=== PATIENT | male | born 1980 | race Hispanic/Latino ===

== ENCOUNTER 2025-06-09 17:38 | Emergency (ER) | payer BC ==
[~2025-06-09] VITALS: Ht 175.3 cm; Wt 99.3 kg
[~2025-06-09 17:38] MED LIST: LACT-441 PO; MVIT PO; PANT40TA54 PO; PROP20TA96 PO; SUCR1ORA15 PO
--- NOTE | 2025-06-09 17:49 | ERN ---
ED Note History of Present Illness Stated Complaint: FEVER Chief Complaint: Fever Time Seen by MD: 17:41 Dictation: PATIENT IS A 43-YEAR-OLD MALE COMING IN TODAY STATUS POST A ENDOSCOPY THIS MORNING HE STARTS THIS AFTERNOON WHEN HE GOT HOME HE STARTED HAVING FEVER CHILLS WITH T-MAX OF 104. NO NAUSEA VOMITING NO DIARRHEA NO CHANGE IN URINATION. HE DENIES SORE THROAT RUNNY NOSE OR COUGH. 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 STATES HE DID NOT FILL FLU LIKE SYMPTOMS WHEN HE GOT TO THE ENDOSCOPY THIS MORNING BY Allergies: Coded Allergies: No Known Drug Allergies (Unverified Allergy, Unknown, 03/12/25) Home Meds Active Scripts Pantoprazole Sodium (Pantoprazole Sodium) 40 Mg Tablet.dr, 1 TAB PO BIDAC for 30 Days, #60 TAB 0 Refills Prov:TONI THAO MD 05/29/25 Sucralfate (Sucralfate) 1 Gram/10 Ml Oral.susp, 10 ML PO TID for 14 Days, #500 ML 0 Refills Prov:HEMA KEENE MD 03/26/25 Lactulose (Lactulose) 10 Gram/15 Ml Solution, 30 ML PO BID for constipation, #500 ML 0 Refills Prov:HEMA KEENE MD 03/26/25 Propranolol HCl (Inderal) 20 Mg Tab, 1 TAB PO BID for 30 Days, #60 TAB 0 Refills Prov:ELVIA DAVILA MD 03/16/25 Multivitamins,Therapeutic (Multivitamin Tablet) 400 Mcg Tab, 1 TAB PO DAILY, #30 TAB Prov:ELVIA DAVILA MD 03/16/25 Past Medical History Past Medical History: GI Bleed, Other Additional Past Medical Hx: esphageal varices Surgical History: Other Surgical History Other: colonoscopy RN Note Reviewed/Agreed w/PFSH: Yes Review of System Dictation CONSTITUTIONAL: NEGATIVE EXCEPT FOR HPI FEVER CHILLS HEAD/FACE: NEGATIVE EXCEPT FOR HPI EENT: NEGATIVE EXCEPT FOR HPI RESPIRATORY: NEGATIVE EXCEPT FOR HPI GASTROINTESTINAL/ABDOMINAL: NEGATIVE EXCEPT FOR HPI GENITOURINARY: NEGATIVE EXCEPT FOR HPI MUSCULOSKELETAL: NEGATIVE EXCEPT FOR HPI INTEGUMENTARY: NEGATIVE EXCEPT FOR HPI NEUROLOGICAL/PSYCH: NEGATIVE EXCEPT FOR HPI HEMATOLOGIC/LYMPHATIC: NEGATIVE EXCEPT FOR HPI ALL SYSTEMS NEGATIVE, EXCEPT NOTED ABOVE. 13 POINT REVIEW OF SYSTEMS ASSESSED AND ALL NEGATIVE EXCEPT FOR ABOVE. Initial Vital Sign VS Vital Signs Date Time Temp Pulse Resp B/P (MAP) Pulse Ox O2 Delivery O2 Flow Rate FiO2 06/09/25 17:40 102.6 112 20 109/67 95 Room Air 0 06/09/25 17:43 21 Physical Exam Dictation VITAL SIGNS REVIEWED GENERAL APPEARANCE: ALERT, ORIENTED X 3, MILD ACUTE DISTRESS, WELL DEVELOPED, NOURISHED. HEAD AND FACE: NON-TRAUMATIC. EYES: PERRL, PINK CONJUNCTIVAS, EYELID NO TRAUMA, ANTERIOR CHAMBER WITH ARCUS SENILIS. EARS: PINNAS INTACT AND NO SIGNS OF TRAUMA OR ERYTHEMA EAR CANALS CLEAR AND NO DISCHARGE TM NO ERYTHEMA NOSE: NO DISCHARGE, NO BLEEDING. OROPHARYNX: MOUTH NORMAL, TONGUE PINK, PHARYNX CLEAR,NO ERYTHEMA, TONSILS NO EXUDATES, NO ABSCESSES NOTED, MUCOUS MEMBRANE MOIST NECK: SUPPLE, NON-TENDER, NO THYROMEGALY, NO MASSES, NO JVD, NO BRUITS BREAST:DEFERRED CHEST:NO TENDERNESS, NO CREPITUS, NO PARADOXICAL MOVEMENT, NO RETRACTIONS LUNGS:CLEAR, WELL-VENTILATED, SYMMETRIC, NO RALES, NO WHEEZING, NO RHONCHI, NO STRIDOR, GOOD BREATH SOUNDS BILATERALLY HEART: REGULAR RATE, REGULAR RHYTHM, NO MURMUR, NO GALLOPS VASCULAR: NO PERIPHERAL EDEMA, ABDOMEN: SOFT, POSITIVE BOWEL SOUNDS, NONDISTENDED, NO GUARDING, NONTENDER, NO REBOUND, NO MASSES NO HEPATOMEGALY, NO SPLENOMEGALY, NO PALMER'S SIGN, NO HERNIAS. RECTAL: DEFERRED GENITAL: DEFERRED NEUROLOGICAL: NORMAL SPEECH, MOTOR FUNCTION INTACT, SENSORY FUNCTION INTACT MUSCULOSKELETAL: NECK NONTENDER, FULL RANGE OF MOTION, BACK NONTENDER, FULL RANGE OF MOTION, EXTREMITIES: NONTENDER, FULL RANGE OF MOTION SKIN: COLOR PINK, DRY, NO TURGOR, NO RASH, NO LACERATIONS, NO ABRASIONS, NO CONTUSIONS. LYMPHATIC: DEFERRED Results (Laboratory/Radiology) Laboratory/Radiology Laboratory Tests Test 06/09/25 18:00 06/09/25 18:13 06/09/25 18:20 White Blood Count 6.4 K/uL (4.8-10.8) Red Blood Count 3.72 MIL/uL (4.50-6.20) L Hemoglobin 9.2 g/dL (14.0-18.0) L Hematocrit 30.2 % (42-54) L Mean Corpuscular Volume 81.2 fL (79-99) Mean Corpuscular Hemoglobin 24.7 pg (27.0-33.0) L Mean Corpuscular Hemoglobin Concent 30.5 g/dL (32.0-36.0) L Red Cell Distribution Width 23.6 % (11.0-15.5) H Platelet Count 126 K/uL (130-400) L Mean Platelet Volume 10.8 fL (7.5-10.5) H Immature Granulocyte % (Auto) 0.2 % (0-1) Neutrophils (%) (Auto) 82.3 % (40.0-77.0) H Lymphocytes (%) (Auto) 8.2 % (21.0-51.0) L Monocytes (%) (Auto) 8.6 % (3.0-13.0) Eosinophils (%) (Auto) 0.5 % (0.0-8.0) Basophils (%) (Auto) 0.2 % (0.0-5.0) Neutrophils # (Auto) 5.2 K/uL (1.8-7.7) Lymphocytes # (Auto) 0.5 K/uL (1.0-4.8) L Monocytes # (Auto) 0.6 K/uL (0.1-1.0) Eosinophils # (Auto) 0.03 K/uL (0.00-0.70) Basophils # (Auto) 0.01 K/uL (0.00-0.20) Absolute Immature Granulocyte (auto 0.01 K/uL (0-1) Nucleated Red Blood Cells 0.0 % (0.0-0.19) White Cell Morphology Comment See comments Red Blood Cell Morphology See comments Sodium Level 136 mmol/L (136-145) Potassium Level 3.6 mmol/L (3.5-5.1) Chloride Level 103 mmol/L (101-111) Carbon Dioxide Level 27 mmol/L (21-32) Blood Urea Nitrogen 9 mg/dL (7-18) Creatinine 0.7 mg/dL (0.5-1.3) Glomerular Filtration Rate Calc 115 mL/min (>90) Random Glucose 130 mg/dL (70-105) H Lactic Acid Level 2.4 mmol/L (0.8-2.5) Total Calcium 8.2 mg/dL (8.5-10.1) L Influenza Type A Antigen Negative For Type A Influenza Type B Antigen Negative For Type B SARS-CoV-2 Antigen (Rapid) PRESUMPTIVE NEGATIVE Group A Streptococcus Rapid negative (NEGATIVE) Urine Color YELLOW (YELLOW) Urine Appearance CLEAR (CLEAR) Urine pH 6.0 (5.0-8.0) Urine Specific [place] 1.030 (1.001-1.031) Urine Protein 10 mg/dL (NEGATIVE) H Urine Glucose (UA) NEGATIVE mg/dL (NEGATIVE) Urine Ketones NEGATIVE mg/dL (NEGATIVE) Urine Occult Blood NEGATIVE (NEGATIVE) Urine Nitrate NEGATIVE (NEGATIVE) Urine Bilirubin NEGATIVE mg/dL (NEGATIVE) Urine Urobilinogen 0.2 mg/dL (0.2-1.0) Urine Leukocyte Esterase NEGATIVE [place]/uL Urine RBC 0-1 /HPF (0-1) Urine WBC 2-5 /HPF (0-1) H Urine Squamous Epithelial Cells RARE /HPF (0-2) Urine Bacteria RARE /HPF (None Seen) Urine Hyaline Casts 2-5 /LPF (0-1 /LPF) H 1840/X-RAY [id number]/CHEST X-RAY NEGATIVEACCESSION#: [id number] REPORT#: [id number] SERVICE [id number] REASON: SHORTNESS A BREATH/COUGH ORDERING PHYSICIAN: [facility] COUNSELLOR PROCEDURE: CXR1VW - CHEST 1VW EXAM: CR Chest, 1 View. CLINICAL HISTORY: SHORTNESS A BREATH/COUGH COMPARISON: None provided. FINDINGS: LUNGS: There is no mass, infiltrate, or acute pulmonary abnormality. PLEURAL SPACES: No pleural effusion or pneumothorax. MEDIASTINUM: The cardiomediastinal silhouette is within normal limits. BONES: No acute osseous abnormality. IMPRESSION: No acute cardiopulmonary pathology is evident. /[place] Labs Reviewed?: Yes ED Course ED Course Orders Procedure Category Date Status Time Covid19 (Sars Antigen LAB 06/09/25 Complete Rapid) 17:46 Influenza Type A & B, LAB 06/09/25 Complete Rapid 17:46 Rapid (Group A Strep) LAB 06/09/25 Complete 17:46 Cbc With Differential LAB 06/09/25 Complete 17:46 Blood Cult EVA 06/09/25 Logged 17:46 Urinalysis Profile LAB 06/09/25 Complete 17:46 Lactic Acid LAB 06/09/25 Complete 17:46 Basic Metabolic Panel LAB 06/09/25 Complete 17:46 Chest 1vw RAD 06/09/25 Resulted 17:46 Acetaminophen 500mg PHA 06/09/25 Complete Tab (Tylenol 500mg T 18:00 Current Medications Medications (Trade) Dose Ordered Sig/Neisha Route PRN Reason Start Time Stop Time Status Last Admin Dose Admin Acetaminophen (TYLenol 500MG TAB) 1,000 mg ONCE ONCE PO 06/09/25 18:00 06/09/25 18:01 DC 06/09/25 18:33 Vital Signs Date Time Temp Pulse Resp B/P (MAP) Pulse Ox O2 Delivery O2 Flow Rate FiO2 06/09/25 18:33 102.6 06/09/25 17:43 102.6 112 20 109/67 95 Room Air* 0 21 06/09/25 17:40 102.6 112 20 109/67 95 Room Air 0 1920/PATIENT DISCHARGED HOME WITH VIRAL SYNDROME. NO ANTIBIOTICS INITIATED THIS TIME. NO FLUIDS GIVEN PATIENT WILL BE TREATED FOR ACUTE VIRAL SYNDROME WITH FLUIDS TYLENOL OR MOTRIN [id number] NEEDED HOME. FOLLOW UP WITH HIS DOCTOR. URINALYSIS NEGATIVE Medical Decision Making MDM MDM: DIFFERENTIAL DIAGNOSIS: SEPSIS/SARS COVID/FLU/STREP/PNEUMONIA/BRONCHITIS/ELECTROLYTE IMBALANCE/DEHYDRATION/UTI RATIONALE: TESTS CONSIDERED AND ORDERED SECONDARY TO SHARED DECISION MAKING INCLUDE: RADIOLOGY/LABS PREVIOUS OUTSIDE RECORDS REVIEWED: OLD ER VISITS. RISK OF COMPLICATION AND/OR MORBIDITY OR MORTALITY OF PATIENT MANAGEMENT: NONE MEDICATIONS-PER MEDICATION RECONCILIATION NEED FOR HOSPITALIZATION: PATIENT DOES NOT MEET CRITERIA FOR HOSPITALIZATION. NONE NEED FOR EMERGENCY MAJOR/MINOR SURGERY: NO THERE ARE NO SOCIAL CONCERNS WITH THIS PATIENT. PRESCRIPTION DRUG MANAGEMENT NONE PRESCRIPTIONS WILL INCLUDE SYMPTOMATIC CARE PATIENT'S PRIOR EXTERNAL MEDICAL RECORDS FROM OTHER ER VISITS WERE REVIEWED BY ME INDICATED. PRIOR TESTING AND RESULTS FROM PREVIOUS VISITS WERE REVIEWED. PRIOR TESTS WERE TAKEN INTO ACCOUNT WITH MEDICAL DECISION MAKING AND RESOURCE UTILIZATION, INDEPENDENT HISTORIAN/HISTORIANS WERE USED TO OBTAIN COMPLETE MEDICAL HISTORY. I INDEPENDENTLY INTERPRETED THE TEST THAT WERE PERFORMED, RESULTS WERE REVIEWED BY ME AND CONSIDERED FINDINGS ON RADIOLOGY IF ORDERED. MEDICAL MANAGEMENT AND EXAMINATION INTERPRETATION DISCUSSIONS WERE HAD BY ME WITH OTHER QUALIFIED HEALTHCARE PROFESSIONALS INDICATED FOR THE PATIENT'S CARE. DX & DISP Disposition: Discharge Departure Impression: Primary Impression: Acute viral syndrome Additional Impressions: Chronic anemia, Hypocalcemia, Diabetes mellitus with hyperglycemia Condition: Stable Additional Instructions: FOLLOW-UP WITH PRIMARY CARE PROVIDER IN 1 TO 2 DAYS. TAKE MEDICATIONS DIRECTED HERE IN THE EMERGENCY ROOM. OKAY TO CONTINUE HOME MEDICATIONS UNLESS OTHERWISE DISCUSSED DURING YOUR VISIT IN THE EMERGENCY ROOM TODAY. RETURN TO YOUR NEAREST EMERGENCY ROOM IF SYMPTOMS WORSEN OR IF THERE IS NO IMPROVEMENT. CALL 911 IF YOU NEED IMMEDIATE ASSISTANCE. TAKE TYLENOL OR MOTRIN [id number] NEEDED AND IF NO CONTRAINDICATIONS ARE PRESENT. INCREASE ORAL HYDRATION. A WOUND CULTURE OR URINE CULTURE WAS ORDERED HERE IN THE EMERGENCY ROOM DEPARTMENT PLEASE FOLLOW-UP WITH PRIMARY CARE PROVIDER AND ADVISE THEM TO GET REPEAT PORTS FROM OUR FACILITY. IF YOU HAD ANY FOREIGN WRAP/SPLINTS THAT WERE APPLIED HERE, PLEASE DO NOT REMOVE THEM UNTIL YOU SEE YOUR PRIMARY CARE OR SPECIALTY. INCREASE YOUR FLUID INTAKE. TAKE TYLENOL OR MOTRIN [id number] NEEDED FOR FEVER. FOLLOW UP WITH YOUR PRIMARY CARE DOCTOR IN THE NEXT 1-2 DAYS. Referrals: HARLEY GIRALDO (PCP) Time of Disposition: 19:21 I have reviewed the case, and I agree with, Diagnosis and Plan [facility] NP Jun 09, 2025 17:49
[2025-06-09 18:08] LABS: IMMATURE GRANULOCYTE ABSOLUTE 0.01 K/uL (0-1); NUCLEATED RED BLOOD CELLS 0.0 % (0.0-0.19); PLATELET COUNT (AUTO) 126 K/uL (130-400); RED BLOOD CELL COUNT(AUTO) 3.72 MIL/uL (4.50-6.20); RED CELL DISTRIBUTION WIDTH 23.6 % (11.0-15.5); WHITE BLOOD COUNT (AUTO) 6.4 K/uL (4.8-10.8)
[2025-06-09 18:16] LABS: CREATININE 0.7 mg/dL (0.5-1.3); GLOMERULAR FILTR. RATE CALC 115.0 mL/min (>90); GLUCOSE,RANDOM 130.0 mg/dL (70-105); SODIUM SERUM 136.0 mmol/L (136-145); UREA NITROGEN, BLOOD 9.0 mg/dL (7-18)
[2025-06-09 18:33] VITALS: TEMP 102.6
[2025-06-09 18:34] LABS: RAPID GROUP A STREP negative (NEGATIVE)
[2025-06-09 18:41] LABS: COVID19 (SARS ANTIGEN RAPID) PRESUMPTIVE NEGATIVE (NEGATIVE); INFLUENZA TYPE A Negative For Type A (NEGATIVE); INFLUENZA TYPE B Negative For Type B (NEGATIVE)
[2025-06-09 18:50] LABS: APPEARANCE,URINE CLEAR (CLEAR); GLUCOSE, URINE (UA) NEGATIVE (NEGATIVE); LEUKOCYTE ESTERASE ,URINE NEGATIVE Leu/uL (NEGATIVE); NITRATE,URINE NEGATIVE (NEGATIVE); OCCULT BLOOD,URINE NEGATIVE (NEGATIVE)
[2025-06-09 18:52] LABS: ADD UA MICROSCOPIC YES; SQUAMOUS EPITHELIAL CELL,UR RARE /HPF (0-2)
--- NOTE | 2025-06-09 19:05 | HMCIMG ---
EXAM: CR Chest, 1 View. CLINICAL HISTORY: SHORTNESS A BREATH/COUGH COMPARISON: None provided. FINDINGS: LUNGS: There is no mass, infiltrate, or acute pulmonary abnormality. PLEURAL SPACES: No pleural effusion or pneumothorax. MEDIASTINUM: The cardiomediastinal silhouette is within normal limits. BONES: No acute osseous abnormality. IMPRESSION: No acute cardiopulmonary pathology is evident. /[place]
[2025-06-09 19:39] VITALS: BP 90/48; PULSE 79; RESP 16; TEMP 100.8; O2SAT 96
== END 2025-06-09 19:58 | disposition home or self-care (01) ==
LOC: EDH 17:38
DX: B34.9 Viral infection, unspecified (principal); D64.9 Anemia, unspecified; E11.65 Type 2 diabetes mellitus with hyperglycemia; E83.51 Hypocalcemia; Z79.899 Other long term (current) drug therapy; Z20.822 Contact with and (suspected) exposure to COVID-19
CPT/HCPCS: 36415; 71045; 80048; 81001; 83605; 85025; 87040; 87426; 87804; 87880; 99283

== ENCOUNTER 2025-07-28 09:27 | Emergency (ER) | payer BC ==
[~2025-07-28] VITALS: Ht 175.3 cm; Wt 96.6 kg
[~2025-07-28 09:27] MED LIST changes: +ACET-2079 PO; +AMOX1TAB16 PO; +FURO40TA5 PO; +ONDA-105 PO; +PROP10TA72 PO; -PROP20TA96 PO; +SPIR100T5 PO; -SUCR1ORA15 PO
--- NOTE | 2025-07-28 09:50 | ERN ---
General Chief Complaint: Abdominal Pain Stated Complaint: ABDOMINAL PAIN Time Seen by MD: 09:29 Source: patient History of Present Illness Initial Comments Patient is a 45-year-old male coming in complaining of lower abdominal pain. Per patient he had surgery on July 03 and shortly after that started having lower abdominal pain. No fever no chills mild nauseousness no vomiting. Patient quantifies the pain at 10/10. Surgery was performed [facility] by Dr. Santamaria. Timing/Duration: 1 week, constant, getting worse Severity: severe Modifying Factors: improves with movement Associated Symptoms: fever/chills Allergies: Coded Allergies: No Known Drug Allergies (Unverified Allergy, Unknown, 03/12/25) Home Meds Active Scripts Amoxicillin/Potassium Clav (Amox Tr-K Clv 875-125 mg Tab) 875 Mg-125 Mg Tablet, 1 TAB PO BID for 10 Days, #20 TAB 0 Refills Prov:COLLIN SCANLON MD 07/10/25 Pantoprazole Sodium (Pantoprazole Sodium) 40 Mg Tablet.dr, 1 TAB PO BIDAC for 30 Days, #60 TAB 0 Refills Prov:TONI THAO MD 05/29/25 Lactulose (Lactulose) 10 Gram/15 Ml Solution, 30 ML PO BID for constipation, #500 ML 0 Refills Prov:HEMA KEENE MD 03/26/25 Multivitamins,Therapeutic (Multivitamin Tablet) 400 Mcg Tab, 1 TAB PO DAILY, #30 TAB Prov:ELVIA DAVILA MD 03/16/25 Reported Medications Ondansetron HCl (Ondansetron HCl) 8 Mg Tablet, 1 TAB PO TID PRN for NAUSEA/VOMITING 07/09/25 Acetaminophen with Codeine (Acetaminophen-Cod #3 Tablet) 300 Mg-30 Mg Tablet, 1 TAB PO Q6HPRN PRN for PAIN LEVEL 1 TO 5 07/09/25 Furosemide (Furosemide) 40 Mg Tablet, 1 TAB PO DAILY 07/09/25 Spironolactone (Spironolactone) 100 Mg Tablet, 1 TAB PO DAILY 07/09/25 Propranolol HCl (Inderal) 10 Mg Tab, 1 TAB PO BID 07/09/25 Past Medical History Past Medical History: No Pertinent History, Liver Disease Medical History Other: esphageal varices Past Surgical History: Other (had an anastomosis of gut but could not remember the name.) Surgical History Other: ABD SX PSYCH History: no pertinent psych hx Social History Social History: Smokers, Drugs, Lives with family Dication He is a smoker, drinker, uses cocaine and marijuana but stopped these 4 months back. He has a single sexual partner which is his . They had sex last time was 4 to 5 months back. ROS Dictation CONSTITUTIONAL: No chills, no fever, no weakness, no diaphoresis, no malaise. HEAD/FACE: No signs of trauma. EENT: No eye pain, no blurred vision, no tearing, no double vision, no ear pain, no ear discharge, no nose pain, no nasal congestion, no throat pain, no throat swelling, no mouth pain. RESPIRATORY: No cough, no orthopnea, no SOB, no stridor, no wheezing. CARDIOVASCULAR: No chest pain, no edema, no palpitations, no syncope. GASTROINTESTINAL/ABDOMINAL: abdominal pain, no constipation, no diarrhea, no nausea, no vomiting. GENITOURINARY: No abnormal discharge, no dysuria, no frequent urination, no hematuria. No complaints of pain in the genitals. MUSCULOSKELETAL: No back pain, no gout, no joint pain, no joint swelling, no muscle pain, no muscle stiffness, no neck pain. INTEGUMENTARY: No change in color, no change in hair/nails, no dryness, no lesion, no lumps, no rash. NEUROLOGICAL/PSYCH: No anxiety, not depressed, no emotional problem, no headache, no numbness, no pre-existing deficit, no history of seizures, no shira mors, no weakness. HEMATOLOGIC/LYMPHATIC: Not anemic, no history of blood clots, no apparent bleeding, no bruising, glands not swollen. All Systems Negative, Except as Noted. Constitutional: (+) fever EENTM: (-) eye pain, (-) blurred vision, (-) tearing, (-) double vision, (-) ear pain, (-) ear discharge, (-) nose pain, (-) nose congestion, (-) throat pain, (-) Throat swelling, (-) mouth pain, (-) tooth pain, (-) mouth swelling, (-) other documentation Cardiovascular: (-) chest pain, (-) edema, (-) palpitations, (-) syncope, (-) dyspnea on exertion, (-) other documentation Gastrointestinal/Abdominal: (+) abdominal pain Genitourinary: (+) pain Musculoskeletal: (-) Neck pain, (-) back pain, (-) Flank Pain, (-) joint pain, (-) joint swelling, (-) muscle pain, (-) muscle stiffness, (-) gout, (-) other documentation Skin: (-) laceration, (-) contusion, (-) abrasion, (-) abscess, (-) rash, (-) change in color, (-) change in hair, (-) change in nails, (-) diaphoresis, (-) dryness, (-) other documentation Neuro: (-) altered mental status, (-) headache, (-) syncope, (-) paralysis, (-) numbness, (-) seizure, (-) pre-existing deficit, (-) tremors, (-) weakness, (-) dizziness, (-) slurred speech, (-) vertigo, (-) other documentation Psych: (-) depression, (-) suicidal ideation, (-) anxiety, (-) emotional problems, (-) auditory hallucinations, (-) visual hallucinations Hematologic/Lymphatic: (-) anemia, (-) blood clots, (-) easy bleeding, (-) easy bruising, (-) swollen glands, (-) other documentation Immunological/Allergic: (-) food allergy, (-) grass allergy, (-) mold allergy, (-) pollen allergy, (-) HIV/AIDS, (-) transplant, (-) othe documentation Physical Exam Physical Exam Dictation VITAL SIGNS: Reviewed. GENERAL APPEARANCE: Alert, oriented x3, no acute distress, obese. HEAD AND FACE: Non-traumatic. EYES: PERRL, pink conjunctivas, eyelid no trauma, anterior chamber clear. EARS: Pinnas intact and no signs of trauma or erythema. Ear canals clear and no discharge. TMs no erythema. NOSE: No discharge, no bleeding. OROPHARYNX: Mouth normal, teeth no caries, tongue pink. Pharynx clear, no erythema. Tonsils no exudates, no abscesses noted. Mucous membrane moist. NECK: Supple, non-tender, no thyromegaly, no masses, no JVD, no bruits. BREAST: Deferred. CHEST: No tenderness, no crepitus, no paradoxical movement, no retractions. LUNGS: Clear, well-ventilated, symmetric, no rales, no wheezing, no rhonchi, no stridor, good breath sounds bilaterally. HEART: Regular rate, regular rhythm, no murmur, no gallops. VASCULAR: No peripheral edema. ABDOMEN: Soft, positive bowel sounds, nondistended, no guarding, for abdominal t enderness on palpation, no rebound, no masses no hepatomegaly, no splenomegaly, no Bro's sign, no hernias. RECTAL: Deferred. GENITAL: Deferred. NEUROLOGICAL: Normal speech, gross motor function intact, gross sensory function intact. MUSCULOSKELETAL: Neck nontender, full range of motion, back nontender, full range of motion. EXTREMITIES: Nontender, full range of motion. SKIN: Color pink, dry, no turgor, no rash, no lacerations, no abrasions, no contusions. LYMPHATICS: Deferred. General Appearance: (+) moderate distress Orientation: (+) alert, (+) oriented x 3 Head/Face Trauma: No Eye: bilateral eye normal inspection, bilateral eye normal Fundi Ear, Nose, Throat: (+) hearing grossly normal, (+) normal ENT inspection, (+) moist mucous membraine, (+) normal pharynx, (+) normal TM Neck: (+) normal inspection, (+) full range of motion, (+) no JVD, (+) non- tender Gastrointestinal: (+) tender Genital: (+) testicular pain Back: (+) normal inspection Extremities: (+) normal range of motion Neurologic/Psychiatric: (+) normal speech, (+) no motor defecits, (+) no sensory deficits Stroke Patient?: No Results Laboratory and Microbiology Lab and Micro Result Laboratory Tests Test 07/28/25 09:53 07/28/25 10:22 White Blood Count 8.4 K/uL (4.8-10.8) Red Blood Count 4.57 MIL/uL (4.50-6.20) Hemoglobin 10.7 g/dL (14.0-18.0) L Hematocrit 35.7 % (42-54) L Mean Corpuscular Volume 78.1 fL (79-99) L Mean Corpuscular Hemoglobin 23.4 pg (27.0-33.0) L Mean Corpuscular Hemoglobin Concent 30.0 g/dL (32.0-36.0) L Red Cell Distribution Width 18.5 % (11.0-15.5) H Platelet Count 146 K/uL (130-400) Mean Platelet Volume 9.9 fL (7.5-10.5) Immature Granulocyte % (Auto) 0.2 % (0-1) Neutrophils (%) (Auto) 76.8 % (40.0-77.0) Lymphocytes (%) (Auto) 11.9 % (21.0-51.0) L Monocytes (%) (Auto) 9.1 % (3.0-13.0) Eosinophils (%) (Auto) 1.5 % (0.0-8.0) Basophils (%) (Auto) 0.5 % (0.0-5.0) Neutrophils # (Auto) 6.5 K/uL (1.8-7.7) Lymphocytes # (Auto) 1.0 K/uL (1.0-4.8) Monocytes # (Auto) 0.8 K/uL (0.1-1.0) Eosinophils # (Auto) 0.13 K/uL (0.00-0.70) Basophils # (Auto) 0.04 K/uL (0.00-0.20) Absolute Immature Granulocyte (auto 0.02 K/uL (0-1) Nucleated Red Blood Cells 0.0 % (0.0-0.19) Red Blood Cell Morphology See comments Sodium Level 139 mmol/L (136-145) Potassium Level 4.1 mmol/L (3.5-5.1) Chloride Level 103 mmol/L (101-111) Carbon Dioxide Level 26 mmol/L (21-32) Blood Urea Nitrogen 9 mg/dL (7-18) Creatinine 0.6 mg/dL (0.5-1.3) Glomerular Filtration Rate Calc 120 mL/min (>90) Random Glucose 107 mg/dL (70-105) H Total Calcium 9.0 mg/dL (8.5-10.1) Total Bilirubin 1.7 mg/dL (0.2-1.0) H Aspartate Amino Transf (AST/SGOT) 30 U/L (10-37) Alanine Aminotransferase (ALT/SGPT) 22 U/L (12-78) Alkaline Phosphatase 127 U/L (50-136) Troponin I High Sensitivity < 4 ng/L (4-75) L Total Protein 8.3 g/dL (6.0-8.3) Albumin 3.7 g/dL (3.5-5.0) Lipase 64 U/L (16-77) Urine Color YELLOW (YELLOW) Urine Appearance CLEAR (CLEAR) Urine pH 6.5 (5.0-8.0) Urine Specific [place] 1.026 (1.001-1.031) Urine Protein 10 mg/dL (NEGATIVE) H Urine Glucose (UA) NEGATIVE mg/dL (NEGATIVE) Urine Ketones NEGATIVE mg/dL (NEGATIVE) Urine Occult Blood NEGATIVE (NEGATIVE) Urine Nitrate NEGATIVE (NEGATIVE) Urine Bilirubin NEGATIVE mg/dL (NEGATIVE) Urine Urobilinogen 4.0 mg/dL (0.2-1.0) H Urine Leukocyte Esterase NEGATIVE [place]/uL Urine RBC 0-1 /HPF (0-1) Urine WBC 2-5 /HPF (0-1) H Urine Squamous Epithelial Cells RARE /HPF (0-2) Urine Bacteria None /HPF (None Seen) Labs Reviewed?: Yes EKG/XRAY/US/CT/MRI EKG Comment 07/28/2025 time 9:48 a.m. Ventricular rate 67 Sinus rhythm [place] [address] wave elevation or depression Ultrasound Comment [place] [address] [address] IMAGING REPORT Signed PATIENT: ROD DOMINGUEZ MR#: [id number] : 1980 SEX: M AGE: 45 LOCATION: [facility] ORDER [id number] STATUS: REG REPORT#: [id number] SERVICE 1031 REASON: left testicle pain ORDERING PHYSICIAN: LAWRENCE CAMARGO MD PROCEDURE: SCROTUM - US SCROTUM & CONTENTS EXAM: Ultrasound Scrotum CLINICAL HISTORY: Left testicular pain TECHNIQUE: Real-time ultrasound of the scrotum with color Doppler and image documentation performed. COMPARISON: None available. FINDINGS: Right Testicle: Measures 3.5 ??? 1.9 ??? 2.5 cm Homogeneous echotexture Normal echogenicity Normal color Doppler flow ??? no evidence of hyperemia or decreased perfusion Epididymis: Head 6.6 mm, body 4.4 mm, tail 2.2 mm ??? within normal limits Epididymal Doppler flow: Normal Left Testicle: Measures 3.9 ??? 1.7 ??? 2.9 cm Homogeneous echotexture Normal echogenicity Normal color Doppler flow ??? symmetric with the right testis Epididymis: Head 6.6 mm, body 3.1 mm, tail 3.3 mm ??? within normal limits Epididymal Doppler flow: Normal Scrotum/Peritesticular Structures: No varicocele detected. Mild left hydrocele.No extratesticular mass or focal abnormality No scrotal wall thickening IMPRESSION: No evidence of testicular torsion, epididymitis, orchitis, or mass. Mild left hydrocele. /[facility] DICTATED BY: FRANKIE DE JESUS Jr., MD DATE: 07/28/25 135 ELECTRONICALLY SIGNED BY: FRANKIE DE JESUS Jr., MD DATE: 07/28/[address] Scan Comment [address] [address] IMAGING REPORT Signed PATIENT: ROD DOMINGUEZ MR#: [id number] : 1980 SEX: M AGE: 45 LOCATION: [facility] ORDER [id number] STATUS: [facility] REPORT#: [id number] SERVICE 1034 REASON: lower abd pain/ post surgery ORDERING PHYSICIAN: LAWRENCE CAMARGO MD PROCEDURE: ABD PEL W - CT ABDOMEN/PELVIS W/CONTRAST EXAM: CT Abdomen and Pelvis with IV contrast CLINICAL HISTORY: lower abd pain/ post surgery TECHNIQUE: Axial computed tomography images of the abdomen and pelvis with intravenous contrast. CONTRAST: with intravenous contrast. COMPARISON: Study dated 07/08/2025 FINDINGS: LUNG BASES: The lung bases appear clear. No pleural effusions are seen. LIVER: Mild cirrhotic appearance. Perigastric and paraesophageal varices are noted. GALLBLADDER AND BILE DUCTS: No biliary ductal dilatation is evident. Atrophic gallbladder. No calcified stone. No ductal dilation. PANCREAS: Unremarkable. SPLEEN: Mild splenomegaly and portal venous prominence suggesting portal venous hypertension. ADRENAL GLANDS: Unremarkable. KIDNEYS, URETERS, AND BLADDER: The kidneys appear within normal limits. There is no hydronephrosis or hydroureter. No urinary calculi are seen. Small collection with adjacent inflammation seen anterior urinary bladder (decreased as compared to the prior study ) STOMACH AND BOWEL: Unremarkable appearance of the stomach No evidence of bowel obstruction. Thickening of the sigmoid belcher, suggesting sigmoiditis, with associated small bowel edema Findings have regressed compared to the prior exam. APPENDIX: No evidence of acute appendicitis on CT examination. PERITONEUM: No free fluid. No free air. LYMPH NODES: No lymphadenopathy is evident. REPRODUCTIVE: Unremarkable as visualized. VASCULATURE: No evidence of abdominal aortic aneurysm. BONES: No aggressive appearing osseous lesion. No acute osseous pathology evident. IMPRESSION: 1. Small collection with adjacent inflammation anterior to urinary bladder, decreased compared to prior study. 2. Sigmoid wall thickening suggesting sigmoiditis with associated small bowel edema, regressed compared to prior exam. 3. Mild cirrhotic appearance of liver with signs of portal hypertension, including mild splenomegaly and portal venous prominence. /[place] DICTATED BY: NAT HCACON MD DATE: 07/28/251504 ELECTRONICALLY SIGNED BY: NAT CHACON MD DATE: 07/28/251504 [facility] MDM: Differential diagnosis: sepsis, acute prostatitis, urinary tract infection, acute epididymoorchitis, varicocele, hydrocele. Rationale: Tests considered and ordered secondary to shared decision making include: Previous outside records reviewed: Old ER visits. Risk of complication and/or morbidity or mortality of patient management: None Medications-Per medication reconciliation Need for hospitalization: Patient does not meet criteria for hospitalization. Need for emergency major/minor surgery: No There are no social concerns with this patient. Prescription drug management Prescriptions will include symptomatic care Patient's prior external medical records from other ER visits were reviewed by me as indicated. Prior testing and results from previous visits were reviewed. Prior tests were taken into account with medical decision making and resource utilization, independent historian/historians were used to obtain complete medical history. I independently interpreted the test that were performed, results were reviewed by me and considered findings on radiology if ordered. Medical management and examination interpretation discussions were had by me with other qualified healthcare professionals as indicated for the patient's care.He is a 45 year old male with no past medical history presented to the ER for pain in the lower abdomen, pelvis and scrotum. His pain started 4 days back. It is aggravated with movement, coughing and hiccups. It is relieved by rest. It is associated with fever which is present on and off. He has no nausea, vomiting, burning pain while urinating. Four months back he had a surgery where they did a anastomosis of gut. After the surgery he noticed that his scrotum is swollen and the swelling went away on its own. He also uses flomax. He is a smoker, drinker, uses cocaine and marijuana but he stopped these four months back. He has a single sexual partner which is his . The last time that they had sex was 4 to 5 months back. In the ER his vital signs show that Temperature is 97.9, pulse is 85, RR is 20, BP is 119/73, O2 saturation is 99% on RA. We ordered EKG,, CBC, CMP, troponin, lipase, urinalysis. Labs show WBC is 8.4, Hb is 10.7, HCT is 35.7, MCV is 78.1, MCH is 23.4, MCHC is 30.0, RDW is 18.5, Sodium is 139, potassium is 4.1, chloride is 103, bicarbonate is 26, BUN is 9, creatinine is 0.6, glucose is 107, bilirubin is 1.7, lipase is 64. Urinalysis show protein 10, WBC is 2 to 5, Urobilinogen 4. Based on his blood work and vital signs we ruled out sepsis as his vitals signs are in the normal range and labs show WBC are normal. As his urinalysis is unremarkable we ruled out UTI. His testicular ultrasound showed no evidence of inflammation, infection or torsion but mild hydrocele is seen. ED Course Orders Procedure Category Date Status Time Cbc With Differential LAB 07/28/25 Complete : Comprehensive LAB 07/28/25 Complete Metabolic Panel 09:39 Urinalysis Profile LAB 07/28/25 Complete : 12 Lead Ekg Tracing- EKG 07/28/25 Complete Technical 09:39 Lactated Ringers PHA 07/28/25 Complete 1000ml (Lactated 10:00 Lipase LAB 07/28/25 Complete :39 Troponin I High LAB 07/28/25 Complete Sensitivity 09:40 Ondansetron 4mg Inj PHA 07/28/25 Complete (Zofran 4mg Inj) 10:00 Lidocaine Hcl 2% PHA 07/28/25 Complete Viscous (Lidocaine Hcl 10:00 Mag/Alum/Simeth 30ml PHA 07/28/25 Complete (Maalox Plus 30ml) 10:00 Pantoprazole 40mg Inj PHA 07/28/25 Complete (Protonix 40mg Inj 10:00 Us Scrotum & Contents US 07/28/25 Resulted 10:31 Ct Abdomen/Pelvis CT 07/28/25 Resulted W/Contrast 10:34 Iohexol (Omnipaque) PHA 07/28/25 Complete 12:43 Current Medications Medications (Trade) Dose Ordered Sig/Neisha Route PRN Reason Start Time Stop Time Status Last Admin Dose Admin Al Hydroxide/Mg Hydroxide (MAALox PLUS 30ML) 30 ml ONCE ONCE PO 07/28/25 10:00 07/28/25 09:48 DC Iohexol (Omnipaque) 75 ml STK-MED ONCE IV 07/28/25 12:43 07/28/25 12:43 DC Lactated Ringer's 1,000 ml @ 0 mls/hr ONCE ONCE IV 07/28/25 10:00 07/28/25 10:01 DC 07/28/25 10:04 Lidocaine HCl (Lidocaine HCl 2% Viscous) 10 ml ONCE ONCE PO 07/28/25 10:00 07/28/25 09:48 DC Ondansetron HCl (zoFRAN 4MG INJ) 4 mg ONCE ONCE IVP 07/28/25 10:00 07/28/25 09:48 DC Pantoprazole Sodium (PROTonix 40MG INJ) 40 mg ONCE ONCE IVP 07/28/25 10:00 07/28/25 09:48 DC Vital Signs Date Time Temp Pulse Resp B/P (MAP) Pulse Ox O2 Delivery O2 Flow Rate FiO2 07/28/25 13:44 97.5 86 16 112/72 97 Room Air* 0 21 07/28/25 10:13 98.6 83 19 109/62 98 Room Air* 0 21 07/28/25 09:29 97.9 85 20 119/73 99 Room Air* 0 21 07/28/25 09:29 97.9 85 20 119/73 99 Room Air HEART Score Response (Comments) Value Age: 45-65yrs (+1) 1 Total 1 DX & DISP Disposition: Discharge Departure Impression: Primary Impression: Cirrhosis Additional Impressions: Sigmoiditis, Left hydrocele Condition: Stable Additional Instructions: FOLLOW-UP WITH PRIMARY CARE PROVIDER IN 1 TO 2 DAYS. TAKE MEDICATIONS DIRECTED HERE IN THE EMERGENCY ROOM. OKAY TO CONTINUE HOME MEDICATIONS UNLESS OTHERWISE DISCUSSED DURING YOUR VISIT IN THE EMERGENCY ROOM TODAY. RETURN TO YOUR NEAREST EMERGENCY ROOM IF SYMPTOMS WORSEN OR IF THERE IS NO IMPROVEMENT. CALL 911 IF YOU NEED IMMEDIATE ASSISTANCE. TAKE TYLENOL [id number] NEEDED AND IF NO CONTRAINDICATIONS ARE PRESENT. INCREASE ORAL HYDRATION. A WOUND CULTURE OR URINE CULTURE WAS ORDERED HERE IN THE EMERGENCY ROOM DEPARTMENT PLEASE FOLLOW-UP WITH PRIMARY CARE PROVIDER AND ADVISE THEM TO GET REPORTS FROM OUR FACILITY. IF YOU HAD ANY FOREIGN WRAP/SPLINTS THAT WERE APPLIED HERE, PLEASE DO NOT REMOVE THEM UNTIL YOU SEE YOUR PRIMARY CARE OR SPECIALTY. Referrals: Referrals: HARLEY GIRALDO (PCP) Time of Disposition: 14:14 LAWRENCE CAMARGO MD Jul 28, 2025 09:50 LUDWIN DELACRUZ MD Jul 28, 2025 10:28
[2025-07-28 09:59] LABS: IMMATURE GRANULOCYTE ABSOLUTE 0.02 K/uL (0-1); NUCLEATED RED BLOOD CELLS 0.0 % (0.0-0.19); PLATELET COUNT (AUTO) 146 K/uL (130-400); RED BLOOD CELL COUNT(AUTO) 4.57 MIL/uL (4.50-6.20); RED CELL DISTRIBUTION WIDTH 18.5 % (11.0-15.5); WHITE BLOOD COUNT (AUTO) 8.4 K/uL (4.8-10.8)
[2025-07-28] MEDS ORDERED: LIDOCAINE HCL 2% VISCOUS 15 ML UDCUP PO ONE (10:00)
[2025-07-28] MEDS ORDERED: MAG/ALUM/SIMETH 30 ML UDCUP PO ONE (10:00)
[2025-07-28] MEDS: LACTATED RINGERS 1000ML 1,000 ML IV ONE (10:04)
[2025-07-28 10:05] LABS: CREATININE 0.6 mg/dL (0.5-1.3); GLOMERULAR FILTR. RATE CALC 120.0 mL/min (>90); GLUCOSE,RANDOM 107.0 mg/dL (70-105); SODIUM SERUM 139.0 mmol/L (136-145); UREA NITROGEN, BLOOD 9.0 mg/dL (7-18)
[2025-07-28 10:09] LABS: ASPARTATE AMINOTRANSFERASE 30.0 U/L (10-37); TOTAL PROTEIN, SERUM 8.3 g/dL (6.0-8.3)
--- NOTE | 2025-07-28 10:46 | EKG ---
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
[2025-07-28 11:17] LABS: APPEARANCE,URINE CLEAR (CLEAR); GLUCOSE, URINE (UA) NEGATIVE (NEGATIVE); LEUKOCYTE ESTERASE ,URINE NEGATIVE Leu/uL (NEGATIVE); NITRATE,URINE NEGATIVE (NEGATIVE); OCCULT BLOOD,URINE NEGATIVE (NEGATIVE)
[2025-07-28 11:30] LABS: ADD UA MICROSCOPIC YES
[2025-07-28 11:31] LABS: SQUAMOUS EPITHELIAL CELL,UR RARE /HPF (0-2)
[2025-07-28] MEDS ORDERED: IOHEXOL-350 75 ML VIAL IV ONE (12:43)
--- NOTE | 2025-07-28 12:51 | HMCIMG ---
EXAM: Ultrasound Scrotum CLINICAL HISTORY: Left testicular pain TECHNIQUE: Real-time ultrasound of the scrotum with color Doppler and image documentation performed. COMPARISON: None available. FINDINGS: Right Testicle: Measures 3.5 ??? 1.9 ??? 2.5 cm Homogeneous echotexture Normal echogenicity Normal color Doppler flow ??? no evidence of hyperemia or decreased perfusion Epididymis: Head 6.6 mm, body 4.4 mm, tail 2.2 mm ??? within normal limits Epididymal Doppler flow: Normal Left Testicle: Measures 3.9 ??? 1.7 ??? 2.9 cm Homogeneous echotexture Normal echogenicity Normal color Doppler flow ??? symmetric with the right testis Epididymis: Head 6.6 mm, body 3.1 mm, tail 3.3 mm ??? within normal limits Epididymal Doppler flow: Normal Scrotum/Peritesticular Structures: No varicocele detected. Mild left hydrocele.No extratesticular mass or focal abnormality No scrotal wall thickening IMPRESSION: No evidence of testicular torsion, epididymitis, orchitis, or mass. Mild left hydrocele. /[place]
[2025-07-28 13:44] VITALS: BP 112/72; PULSE 86; RESP 16; TEMP 97.6; O2SAT 97
--- NOTE | 2025-07-28 14:06 | HMCIMG ---
EXAM: CT Abdomen and Pelvis with IV contrast CLINICAL HISTORY: lower abd pain/ post surgery TECHNIQUE: Axial computed tomography images of the abdomen and pelvis with intravenous contrast. CONTRAST: with intravenous contrast. COMPARISON: Study dated 07/08/2025 FINDINGS: LUNG BASES: The lung bases appear clear. No pleural effusions are seen. LIVER: Mild cirrhotic appearance. Perigastric and paraesophageal varices are noted. GALLBLADDER AND BILE DUCTS: No biliary ductal dilatation is evident. Atrophic gallbladder. No calcified stone. No ductal dilation. PANCREAS: Unremarkable. SPLEEN: Mild splenomegaly and portal venous prominence suggesting portal venous hypertension. ADRENAL GLANDS: Unremarkable. KIDNEYS, URETERS, AND BLADDER: The kidneys appear within normal limits. There is no hydronephrosis or hydroureter. No urinary calculi are seen. Small collection with adjacent inflammation seen anterior urinary bladder (decreased as compared to the prior study ) STOMACH AND BOWEL: Unremarkable appearance of the stomach No evidence of bowel obstruction. Thickening of the sigmoid belcher, suggesting sigmoiditis, with associated small bowel edema Findings have regressed compared to the prior exam. APPENDIX: No evidence of acute appendicitis on CT examination. PERITONEUM: No free fluid. No free air. LYMPH NODES: No lymphadenopathy is evident. REPRODUCTIVE: Unremarkable as visualized. VASCULATURE: No evidence of abdominal aortic aneurysm. BONES: No aggressive appearing osseous lesion. No acute osseous pathology evident. IMPRESSION: 1. Small collection with adjacent inflammation anterior to urinary bladder, decreased compared to prior study. 2. Sigmoid wall thickening suggesting sigmoiditis with associated small bowel edema, regressed compared to prior exam. 3. Mild cirrhotic appearance of liver with signs of portal hypertension, including mild splenomegaly and portal venous prominence. /[place]
== END 2025-07-28 14:51 | disposition home or self-care (01) ==
LOC: EDH 09:27
DX: K74.60 Unspecified cirrhosis of liver (principal); K52.9 Noninfective gastroenteritis and colitis, unspecified; N43.3 Hydrocele, unspecified; F12.90 Cannabis use, unspecified, uncomplicated; F14.90 Cocaine use, unspecified, uncomplicated; F17.200 Nicotine dependence, unspecified, uncomplicated; Z79.899 Other long term (current) drug therapy; Z98.890 Other specified postprocedural states
CPT/HCPCS: 99285; 74177; 96360; 96361; 84484; 80053; 83690; 85025; 81001; 36415; 76870; 93005; J7120; Q9967